=== PATIENT | female | born 1955 | race Caucasian/White ===

== ENCOUNTER 2025-03-18 14:00 | Emergency (ER) | payer MEDICARE, OTHER, SELFPAY ==
[2025-03-18 14:08] VITALS: BP 155/84; PULSE 86; RESP 20; TEMP 36.6; O2SAT 97; BMI 23.8
--- NOTE | 2025-03-18 15:03 | ED_ITS ---
<Statement entered by Jayden Aguirre, DO - 03/18/25 18:44> Dr. Aguirre cosign statement attestation: I was available for consultation during this patient's emergency department visit. This chart is being signed by myself for administrative purposes only. I did not have direct contact with this patient during this visit. They were seen independently by the [facility]. HPI - Animal Bite General Chief Complaint: Animal Bite Stated Complaint: got Bit by Cousins dog Time Seen by Provider: 03/18/25 14:47 Source: patient Mode of arrival: Ambulatory History of Present Illness HPI narrative: 69-year-old female presents to the emergency department after being bit in the face by a family dog. [place] when she leaned down to smell the dogs freshly shampooed for, when the otherwise friendly dog, snapped at her face. [place] shaped laceration to nose and skin avulsion of upper lip. Patient is due for a tetanus update. Related Data Previous Rx's ?Medication ?Instructions ?Recorded amoxicillin 875 mg-potassium 1 tab PO BID Dog bite pro phylaxis 03/18/25 clavulanate 125 mg tablet 5 days #10 tabs oxycodone-acetaminophen 5 mg-325 1 tab PO Q6H PRN pain #10 tabs 03/18/25 mg tablet (Percocet) Allergies Allergy/AdvReac Type Severity Reaction Status Date / Time ciprofloxacin Allergy Intermediate Anaphylaxis Verified 03/18/25 14:10 cyclobenzaprine Allergy Intermediate Verified 03/18/25 14:10 lisinopril Allergy Intermediate Verified 03/18/25 14:10 Review of Systems Review of Systems Narrative: Narrative: See HPI. GENERAL: Denies chills, fatigue, fever, sweats. HEENT: Denies sinus pain, ear pain, sore throat, difficulty swallowing, dizziness. RESPIRATORY: Denies dyspnea, cough, wheezing, sputum. CARDIOVASCULAR: Denies chest pain, palpitations, edema. GASTROINTESTINAL: Denies nausea, vomiting, abdominal pain, diarrhea, constipation. MSK: Denies weakness, joint pain, or bony pain. SKIN: Denies rash, skin lesions, or pruritis. Laceration to nose and upper lip. NEUROLOGIC: Denies weakness, dizziness, headache, numbness, confusion. Patient History Smoking Status: Former smoker Exam Narrative Exam Narrative: Exam Narrative: GENERAL: This is a well-nourished, well-developed patient, in no acute distress. HEAD: Traumatic. Normocephalic. EYES: Pupils equal round and reactive. Extraocular motions intact. No scleral icterus, injection or drainage. ENT: Nose with laceration and bleeding. Airway patent. RESPIRATORY: Normal respiratory rate and effort. MSK: Moves all extremities. Normal range of motion, no clubbing or edema. Neurovascularly intact. NEURO: A&O x 3. SKIN: Warm, dry, no rashes or lesions noted. [place] shaped laceration to nose and skin avulsion of upper lip. Initial Vital Signs Initial Vital Signs: Vital Signs Temperature 98 F 03/18/25 14:08 Pulse Rate 86 03/18/25 14:08 Respiratory Rate 20 03/18/25 14:08 Blood Pressure 155/84 H 03/18/25 14:08 Pulse Oximetry 97 03/18/25 14:08 Oxygen Delivery Method Room Air 03/18/25 14:08 Reviewed Procedures Laceration Repair Laceration 1: Time of procedure: 15:52 Site: face (Nose) Size (cm): 1 Description: flap Depth: simple, single layer Local Anesthetic: lidocaine 1% Amount of anesthesia used (mL): 1.5 Skin layer closed with: nylon Skin layer suture size: 6-0 Number of sutures: 3 Technique: simple, interrupted Laceration 2: Time of procedure: 15:53 Size (cm): 2.5 Description: involves tyron border and other (Skin avulsion) Skin layer closed with: other (surgicel) Course Orders Ordered: Discontinued Medications Diphtheria/Tetanus/Acell Pertussis (Tet,Diph,Pertuss(Acell),Vac/Pf 0.5 Ml Syringe) 0.5 ml IM .ONCE ONE Stop: 03/18/25 15:11 Last Admin: 03/18/25 15:18 Dose: 0.5 ml Lidocaine HCl (Lidocaine 1% 20 Ml) 3 ml SUBCUT NOW ONE Stop: 03/18/25 15:11 Last Admin: 03/18/25 15:22 Dose: 3 ml Oxycodone/Acetaminophen (Oxycodone/Acetaminophen 5/325 Tablet) 1 tab PO NOW ONE Stop: 03/18/25 15:21 Last Admin: 03/18/25 15:23 Dose: 1 tab Vital Signs Vital signs: Vital Signs - 8 hr 03/18/25 14:08 Temperature 98 F Pulse Rate 86 Respiratory Rate 20 Blood Pressure 155/84 H Pulse Oximetry 97 Oxygen Delivery Method Room Air MDM - Animal Bite Differential Diagnosis Differential diagnosis: Likely bite by animal, dog bite and other (Facial lacer ation.) MDM Narrative Medical decision making narrative: 69-year-old female with facial laceration secondary to dog bite. Applied Surgicel to Skin avulsion of upper lip with Tegaderm and gauze to hold in place. Nose was anesthetized with lidocaine and closed with three 6.0 sutures. Patient tolerated procedure well. Tetanus status was updated. Will begin patient on prophylactic antibiotics and short course of pain medication. Discussed plan of care, return precautions, suture removal in 5 days and proper wound care with patient, who verbalized understanding and was agreeable with course of action. Discharge Plan Departure Patient Disposition: Home Clinical Impression: Bite by animal Dog bite Qualifiers: Encounter type: initial encounter Qualified Code(s): W54.0XXA - Bitten by dog, initial encounter Instructions: DI for Animal Bites, DI for Dog Bite Activity Restrictions/Additional Instructions: *You have been diagnosed with dog bite to the face. We have placed a clotting material called Surgicel on your upper lip that should help with the bleeding. Please allow this to fall off on its own. We have given you additional supplies in case you need to redress it. We have placed 3 sutures in your nose to stop the bleeding and close the wound. You should follow up with your family doctor or return to the emergency department in 5 days to have the sutures removed. We have updated your tetanus status and will begin you on prophylactic antibiotics. Please keep the sites is clean and dry as possible. I have given you a short course of pain medication as I know this can be painful. For any worsening symptoms that includes yellow drainage, increased redness, warmth or swelling, feel free to return to the emergency department. *What to do: *Please continue to take your regular medications as directed. [x ] New medication prescriptions sent to your pharmacy: [[facility]] [ ] New medication written as a paper prescription [ ] No new medications given *Please follow up with your primary care provider in 2-3 days, call for an appointment. Let them know you were seen in the Emergency Department and that we ask that you be seen in follow up. We will electronically transmit a record of today's note if your PCP is in our system *If you do not have a primary care provider please contact the [facility] Resource line at [phone]. They will ask some questions about your medical history and help get you set up with a doctor in the community. ? Return to ER if you should have any new, worsening or concerning symptoms, such as worsening pain, severe headache, confusion, chest pain, difficulty breathing, fever greater than 101 F, shaking chills, persistent vomiting to the point that you cannot drink fluids, or other new or worsening symptoms. Prescriptions: New amoxicillin-pot clavulanate 875-125 mg tablet 1 tab PO BID 5 Days Qty: 10 0RF oxycodone-acetaminophen [Percocet] 5-325 mg tablet 1 tab PO Q6H PRN (Reason: pain) Qty: 10 0RF Stand Alone Forms: Patient Portal/API
[2025-03-18] MEDS: TET,DIPH,PERTUSS(ACELL),VAC/PF 0.5 ML SYRINGE IM (15:18)
[2025-03-18] MEDS: LIDOCAINE 1% 20 ML 3 ML SUBCUT (15:22)
== END 2025-03-18 15:53 | disposition home or self-care (01) ==
PROVIDERS: Emergency Provider Registered Nurse
DX: S01.85XA Open bite of other part of head, initial encounter (principal); W54.0XXA Bitten by dog, initial encounter; Z23 Encounter for immunization
CPT/HCPCS: 12013; 90471; 99283; 90715